=== PATIENT | female | born 1955 | race Caucasian/White ===

== ENCOUNTER → 2016-11-30 | Outpatient (CLI) | payer OTHER | LOC: BMCIMAGING 13:39 | PROVIDERS: ATTEND Podiatrist Foot & Ankle Surgery | DX: S92.352D Displaced fracture of fifth metatarsal bone, left foot, subsequent encounter for fracture with routine healing (principal) ==

== ENCOUNTER → 2016-12-23 | Outpatient (CLI) | payer OTHER | LOC: BMCIMAGING 12:50 | PROVIDERS: ATTEND Podiatrist Foot & Ankle Surgery | DX: S92.355D Nondisplaced fracture of fifth metatarsal bone, left foot, subsequent encounter for fracture with routine healing (principal) ==

== ENCOUNTER → 2017-04-12 | Outpatient (CLI) | payer MEDICAID | LOC: BMCIMAGING 11:02 | PROVIDERS: ATTEND Podiatrist Foot & Ankle Surgery | DX: S92.355D Nondisplaced fracture of fifth metatarsal bone, left foot, subsequent encounter for fracture with routine healing (principal) ==

== ENCOUNTER 2017-07-11 09:37 | Emergency (ER) | payer MEDICAID ==
[2017-07-11] MEDS ORDERED: NS 1,000 ML IV ONE (09:46)
[2017-07-11 09:47] VITALS: RESP 18; TEMP 98.2
--- NOTE | 2017-07-11 09:49 | EDPHY ---
HPI/HX/ROS/PE/MDM Narrative: CHIEF COMPLAINT: Near-syncope HPI: The patient is a 60 y/o female arriving via EMS from the [facility] for evaluation of near syncope and slurred speech onset while exercising this morning. The patient reported feeling lightheaded and near-syncopal while exercising and sought out staff for help. Staff described blueness in her face, slowness, slurred speech, and intermittent alertness to EMS. On EMS arrival she was slow to respond and rambling, but oriented with no focal deficits. She tells me she took 0.5mg Xanax this morning, which is her normal AM dosing. She denies recent alcohol use or illicit drug use. She mentions she recently started a new estrogen medication. She denies paresthesias, weakness, chest pain , dyspnea, recent illness, or recent trauma. EMS BGL was 108. REVIEW OF SYSTEMS: Aside from elements discussed in the HPI, a comprehensive 10-point review of systems was reviewed and is negative. PMH: Chronic abdominal pain - visceral hypersensitivity syndrome, small intestinal bacterial overgrowth syndrome, endometriosis Prior medical records reviewed including admission 12/15/15 for abdominal pain. SOCIAL HISTORY: . Nonsmoker. Lives in [place]. PHYSICAL EXAM: General:Patient is somnolent, can't keep her eyes open, in no acute distress. ENT:Eyes are normal to inspection. ENT inspection show very dry mucous membrane with blue-stained flaking skin on her lips. Neck: Normal inspection. Full range of motion. Respiratory:No respiratory distress. Breath sounds normal bilaterally. Cardiovascular: Regular rate and rhythm. Strong peripheral pulses. Normal cap refill. Abdomen:The abdomen is nontender to palpation. There are no peritoneal signs. Back: Normal to inspection. No tenderness to palpation. Skin: Normal color. No rash. Warm and dry. Extremities: Normal appearance. Full range of motion. Neuro: Oriented x3. Slow and slurred speech. No focal deficit. ED Course: This is a 61 y/o female who presents somnolent with slurred speech that began while exercising this morning and after taking Xanax. She has difficulty keeping her eyes open during assessment and has very dry mucous membranes. Presentation appears to be pharmacologic in nature. No visible trauma and no report of recent illness. She has a nonfocal neuro exam. Plan for IV, labs including tox screen, EKG. The 12 lead EKG was interpreted by myself. Normal sinus rhythm. See hard copy and/or "tracemaster" electronic copy for interpretation. Medication patch identified on buttock when patient got up to use the bathroom. On further inspection this is actually an estrogen patch rather than Fentanyl patch as previously thought. UA non-negative for benzodiazepines. 1210: Reevaluated patient and discussed work up. The patient is much more alert but still seems somewhat drowsy. She is now borderline hostile to both her and to myself, and is demanding to be discharged from the hospital. She states that this is all because of dehydration and adamantly denies this could be do to medication or any other cause. I spoke to her alone and offered to admit the patient to the hospital against her well for further medical workup and to ensure her safety, but he would like to take the patient home. He states that the patient has similar episodes when she takes her medication, and that he will ensure she follows-up with her. I discussed with him that fact that without establishing with certainty what the etiology of her symptoms is, that she is at risk for possible life-threatening event should she be discharged home. He understands this and would like to proceed with discharge. - Data Points Laboratory Results: Laboratory Results 07/11/17 08:45 07/11/17 08:45 07/11/17 07/11/17 07/11/17 10:45 08:45 08:45 WBC 9.81 10^3/uL H 10^3/uL (3.80-9.50) RBC 4.33 10^6/uL 10^6/uL (4.18-5.33) Hgb 12.9 g/dL g/dL (12.6-16.3) Hct 39.1 % % (38.0-47.0) MCV 90.3 fL fL (81.5-99.8) MCH 29.8 pg pg (27.9-34.1) MCHC 33.0 g/dL g/dL (32.4-36.7) RDW 15.6 % H % (11.5-15.2) Plt Count 302 10^3/uL 10^3/uL (150-400) MPV 9.2 fL fL (8.7-11.7) Neut % (Auto) 52.7 % % (39.3-74.2) Lymph % (Auto) 35.2 % % (15.0-45.0) Lynn % (Auto) 7.6 % % (4.5-13.0) Eos % (Auto) 2.8 % % (0.6-7.6) Baso % (Auto) 1.0 % % (0.3-1.7) Nucleat RBC Rel Count 0.0 % % (0.0-0.2) Absolute Neuts (auto) 5.17 10^3/uL 10^3/uL (1.70-6.50) Absolute Lymphs (auto) 3.45 10^3/uL H 10^3/uL (1.00-3.00) Absolute Monos (auto) 0.75 10^3/uL 10^3/uL (0.30-0.80) Absolute Eos (auto) 0.27 10^3/uL 10^3/uL (0.03-0.40) Absolute Basos (auto) 0.10 10^3/uL 10^3/uL (0.02-0.10) Absolute Nucleated RBC 0.00 10^3/uL 10^3/uL (0-0.01) Immature Gran % 0.7 % % (0.0-1.1) Immature Gran # 0.07 10^3/uL 10^3/uL (0.00-0.10) Sodium 136 mEq/L mEq/L (135-145) Potassium 5.0 mEq/L mEq/L (3.5-5.2) Chloride 101 mEq/L mEq/L (97-110) Carbon Dioxide 23 mEq/l mEq/l (22-31) Anion Gap 12 mEq/L mEq/L (8-16) BUN 11 mg/dL mg/dL (7-23) Creatinine 0.8 mg/dL mg/dL (0.6-1.0) Estimated GFR > 60 Glucose 97 mg/dL mg/dL (70-100) Calcium 9.3 mg/dL mg/dL (8.5-10.4) Total Bilirubin 0.3 mg/dL mg/dL (0.1-1.4) Conjugated Bilirubin 0.3 mg/dL mg/dL (0.0-0.5) Unconjugated Bilirubin 0.0 mg/dL mg/dL (0.0-1.1) AST 21 IU/L IU/L (14-46) ALT 21 IU/L IU/L (9-52) Alkaline Phosphatase 61 IU/L IU/L (38-126) Troponin I < 0.012 ng/mL ng/mL (0.000-0.034) Total Protein 6.8 g/dL g/dL (6.3-8.2) Albumin 3.9 g/dL g/dL (3.5-5.0) Urine Opiates Screen NEGATIVE (NEGATIVE) Urine Barbiturates NEGATIVE (NEGATIVE) Ur Phencyclidine Scrn NEGATIVE (NEGATIVE) Ur Amphetamine Screen NEGATIVE (NEGATIVE) U Benzodiazepines Scrn NON-NEGATIVE H (NEGATIVE) Urine Cocaine Screen NEGATIVE (NEGATIVE) U Marijuana (THC) Screen NEGATIVE (NEGATIVE) Medications Given: Discontinued Medications Sodium Chloride (Ns) 1,000 mls @ 0 mls/hr IV EDNOW ONE; Wide Open PRN Reason: Protocol Stop: 07/11/17 09:47 Last Admin: 07/11/17 10:00 Dose: 1,000 mls General Initial Vital Signs: Initial Vital Signs Temperature (C) 36.8 C 07/11/17 09:45 Heart Rate 96 07/11/17 09:45 Respiratory Rate 18 07/11/17 09:45 Blood Pressure 111/76 07/11/17 09:45 O2 Sat (%) 97 07/11/17 09:45 O2 Delivery Mode Room Air O2 (L/minute) 2 Allergies/Adverse Reactions: Penicillins Allergy (Severe, Verified 07/11/17 09:45) gluten Allergy (Intermediate, Verified 07/11/17 09:45) Abdominal Pain lactose Allergy (Intermediate, Verified 07/11/17 09:45) Abdominal Cramping Home Medications: Medication Instructions Recorded Cholecalciferol Vit D3 [Vitamin D3 5,000 units PO BID 12/15/15 (*)] DULoxetine [Cymbalta 60 MG (*)] 60 mg PO DAILY 12/15/15 Diazepam [Valium 10 MG (*)] 10 mg PO BID 12/15/15 Estradiol [Vivelle-Dot 0.075MG (*)] 0.075 mg TD Q6D 12/15/15 Estradiol [Vivelle-Dot 0.1MG (*)] 0.1 mg TD Q6D 12/15/15 Herbals/Supplements -Info Only 1 ea PO DAILY 12/15/15 Multivitamins [Multivitamin (*)] 1 each PO DAILY 12/15/15 [place]-3 Fatty Acids [Fish Oil 1000 1,000 mg PO DAILY 12/15/15 mg (*)] Progesterone, Micronized 200 mg PO BID 12/15/15 [Progesterone] Vitamin B Complex [B Complex] 1 each PO DAILY 12/15/15 Departure - Departure Disposition: Home, Routine, Self-Care Clinical Impression: Altered mental status Qualifiers: Altered mental status type: unspecified Qualified Code(s): R41.82 - Altered mental status, unspecified Condition: Good Instructions: Altered Mental Status (ED) Additional Instructions: Follow up with your primary care provider within 72 hours for reevaluation. Return to the ED for any worsening of condition. Referrals: Patient,NotPresent [Primary Care Provider] - As per Instructions Report Scribed for: Garfield Bates Report Scribed by: Milly Kruse Date of Report: 07/11/17 Time of Report: 09:49 Physician Review and Approval Statement: Portions of this note were transcribed by an ED scribe. I personally performed the history, physical exam, and medical decision making; and confirm the accuracy of the information in the transcribed note.
--- NOTE | 2017-07-11 09:55 | CPEKG ---
Heart Rate: 86 RR Interval: 698 P-R Interval: 120 QRSD Interval: 70 QT Interval: 364 QTC Interval: 436 P [place]: 36 QRS [place]: 39 T Wave [place]: 57 EKG Severity - NORMAL ECG - EKG Impression: SINUS RHYTHM Electronically Signed By: Dante Cadet 14-Jul-2017 14:38:03
[2017-07-11 10:02] LABS: PLATELET COUNT 302 10^3/uL (150-400)
[2017-07-11 11:30] VITALS: BP 105/51
[2017-07-11 12:30] VITALS: PULSE 78; O2SAT 96
== END 2017-07-11 12:29 | disposition home or self-care (01) ==
LOC: EDUNIT#
DX: R41.82 Altered mental status, unspecified (principal); E86.9 Volume depletion, unspecified
CPT/HCPCS: 80305

== ENCOUNTER 2018-02-24 14:55 | Emergency (ER) | payer MEDICAID ==
--- NOTE | 2018-02-24 15:46 | EDPHY ---
H & P Time Seen by Provider: 02/24/18 15:24 HPI/ROS: CHIEF COMPLAINT: Altered mental status HISTORY OF PRESENT ILLNESS: Patient is a 62-year-old female who presents emergency department with altered mental status. Patient was found sitting in her car and appeared to be asleep. EMS found the patient and felt that she was not safe to drive. Patient reports that she did take Xanax prior to arrival. Patient denies taking any opioid pain medication. Patient has ongoing chronic abdominal pain. This is not different from her previous visits. She has had extensive evaluation for her pain including workup at the [facility]. She was diagnosed with intestinal bacterial overgrowth and received antibiotics in the mail for this. Patient was in the emergency department on January 30 and on January 31. Patient is not complaining of specific abdominal pain at this time. She has had no nausea vomiting. No fevers or chills. REVIEW OF SYSTEMS: 10 systems were reveiwed and are negative with the exception of the elements mentioned in the history of present illness. Past Medical/Surgical History: Includes endometriosis, IBS, small intestine bacterial overgrowth, anxiety Past surgical history: Includes hysterectomy, hernia repair Social history: Patient denies drinking alcohol PCP: Dr. Ng Smoking Status: Never smoked Physical Exam: Vitals noted Constitutional: Initial Vital Signs Temperature (C) 36.8 C 02/24/18 15:02 Heart Rate 86 02/24/18 15:02 Respiratory Rate 16 02/24/18 15:02 Blood Pressure 142/95 H 02/24/18 15:02 O2 Sat (%) 95 02/24/18 15:02 O2 Delivery Mode Room Air Allergies/Adverse Reactions: Penicillins Allergy (Severe, Verified 02/24/18 15:08) gluten Allergy (Intermediate, Verified 02/24/18 15:08) Abdominal Pain lactose Allergy (Intermediate, Verified 02/24/18 15:08) Abdominal Cramping Home Medications: Medication Instructions Recorded Cholecalciferol Vit D3 [Vitamin D3 5,000 units PO BID 12/15/15 (*)] DULoxetine [Cymbalta 60 MG (*)] 60 mg PO DAILY 12/15/15 Estradiol [Vivelle-Dot 0.075MG (*)] 0.075 mg TD Q6D 12/15/15 Estradiol [Vivelle-Dot 0.1MG (*)] 0.1 mg TD Q6D 12/15/15 Herbals/Supplements -Info Only 1 ea PO DAILY 12/15/15 Multivitamins [Multivitamin (*)] 1 each PO DAILY 12/15/15 [place]-3 Fatty Acids [Fish Oil 1000 1,000 mg PO DAILY 12/15/15 mg (*)] Progesterone, Micronized 200 mg PO BID 12/15/15 [Progesterone] Vitamin B Complex [B Complex] 1 each PO DAILY 12/15/15 Xifaxan 01/30/18 Xanax 02/24/18 Medical Decision Making ED Course/Re-evaluation: In the emergency department I discussed possible etiologies with the patient. I answered all her questions. I reviewed the patient's previous evaluation on this in January 31. At this time the patient has no specific complaints. She is slightly sleepy but answers my questions appropriately. Patient has a benign abdominal exam. Patient's family member will, pickup. He not feel she needs more diagnostic tests at this time. She did not come here for abdominal pain. She was instructed not to drive. Differential Diagnosis: My differential includes but is not limited to abdominal pain, dissection, aneurysm of small-bowel obstruction, ischemic CVA, hemorrhagic CVA, alcohol intoxication, drug abuse, Xanax use, carbon monoxide poisoning Departure - Departure Disposition: Home, Routine, Self-Care Clinical Impression: Altered mental status Qualifiers: Altered mental status type: unspecified Qualified Code(s): R41.82 - Altered mental status, unspecified Condition: Good Instructions: Altered Mental Status (ED) Additional Instructions: Return with increasing abdominal pain, vomiting, fever, or any other concerns. Referrals: Garfield Fernandez MD [Medical Doctor] - 2-3 days without fail
[2018-02-24 16:47] VITALS: BP 102/66
== END 2018-02-24 16:40 | disposition home or self-care (01) ==
LOC: EDUNIT#
DX: R41.82 Altered mental status, unspecified (principal)